=== PATIENT | male | born 1995 | race Hispanic/Latino ===

== ENCOUNTER 2023-08-14 15:14 | Emergency (ER) | payer OTHER, SELFPAY ==
[2023-08-14 15:27] VITALS: BP 124/75
--- NOTE | 2023-08-14 20:34 | ED.GENMED ---
History of Present Illness
General
Chief Complaint: Crisis Evaluation
Source: patient and police (retirement staff)
Exam Limitations: none
Time Seen by Provider: 08/14/23 18:03
Nursing documentation reviewed up to this point in time: agreed with
History of Present Illness
History of Present Illness:
28-year-old male with no reported medical history who presents to the emergency room from [facility] for evaluation of hallucinations/paranoia. I spoke with the retirement nurse to obtain some collateral history�apparently over
the past day or 2 patient has started to exhibit paranoia and appears to be hallucinating, mumbling to himself and saying that someone is trying to kill him. Prior to this patient with normal mental status and so they sent him to the emergency room
to evaluate for any medical cause prior to initiating psychiatric treatment there. When asked why he is here the patient says 'they are trying to kill me, they are trying to rape me.' When asked to exactly he is concerned about he cannot give a
specific answer. When asked if there is any specific event that made him concerned he is unable to provide an answer. He refuses to answer whether he is hearing voices. He denies suicidal ideation. He denies any drug use or history of drug use.
Review of Systems
Review of Systems
All Other Systems: ROS reviewed and negative except as documented in HPI and ROS
Respiratory: Denies trouble breathing
Cardiac: Denies chest pain
ABD/GI: Denies abdominal pain
: Denies flank pain
Musculoskeletal: Denies back pain
Neurological: Denies headache
Psychiatric: Denies suicidal
Phy Exam
Physical Exam
Physical Exam:
General: Awake, alert, sitting comfortably in the bed and does not appear in acute distress; initially not answering questions but after repeated attempts to communicate he finally begins to engage
Head: Normocephalic, atraumatic
Eyes: Conjunctiva normal, EOMI, pupils equal round and reactive to light bilateral
Throat: Airway intact, handling secretions
Neck: Trachea midline, supple without meningismus, moving neck through full range of motion
Lungs: Clear to auscultation bilaterally, no wheezing, rales, rhonchi
Heart: Regular rate and rhythm, no murmurs, gallops, or rubs
Abd: Soft, non distended, no apparent tenderness
Neuro: Cranial nerves intact, speech is fluid, no focal motor or sensory deficit
Skin: no rash
Extremities: Atraumatic, warm and well-perfused with equal pulses in all extremities
Scores
Heart Failure Risk
Heart Failure Risk Score: Not Applicable
Heart Score for Chest Pain Patients
STEMI patient?: Not applicable
Withdrawal Assessment of Alcohol
Withdrawal Assessment Completed?: Not applicable
Course
Orders/Labs/Results
Orders:
Orders
08/14/23 18:05
Crisis Consult Routine
Reason for Consult: hallucinations
08/14/23 19:04
CT Head W/o Iv Contrast Urgent
Comment:
Reason For Exam: hallucinations
Drug Screen, Urine [Urine Drug Abuse Screen] Urgent
08/14/23 20:32
Alcohol Urgent
Complete Blood Count/With Diff Urgent
Comprehensive Metabolic Panel Urgent
Abnormal Lab Results
08/14/23
20:32
WBC 12.6 H 10^3/uL
(4.8-10.8)
Absolute Neuts (auto) 9.8 H 10^3/uL
(1.4-6.5)
Absolute Monos (auto) 0.9 H 10^3/uL
(0.1-0.6)
Neutrophils % 77.5 H %
(42.2-75.2)
Lymphocytes % 13.3 L %
(20.5-51.1)
Total Bilirubin 1.6 H mg/dl
(0.2-1.3)
08/14/23 20:32
08/14/23 20:32
Vital Signs
Initial and Last Documented VS:
Initial Vital Signs
Temp Pulse Resp BP Pulse Ox
37.1 C 78 20 124/75 99
08/14/23 15:27 08/14/23 15:27 08/14/23 15:27 08/14/23 15:27 08/14/23 15:27
Last Documented Vital Signs
Temp Pulse Resp BP Pulse Ox
37.1 C 78 20 124/75 99
08/14/23 15:27 08/14/23 15:27 08/14/23 15:27 08/14/23 15:27 08/14/23 15:27
MDM/Problems Addressed
Differential Diagnosis Includes:
Psychosis, jose angel, drug intoxication; brain mass or hemorrhage considered much less likely clinically
MDM/Problems Addressed:
28-year-old male presents from retirement for evaluation of paranoia and hallucinations. Vital signs are normal. Physical exam as above. Sent over to rule out any acute medical abnormality that might account for symptoms. Will check CT head. Check
basic labs. Reassess after the above�my initial impression is that this is a primary psychiatric issue. Consulted crisis to evaluate.
CT head negative for any acute pathology. Crisis perform an assessment�patient can be treated psychiatrically at present. Spoke with presents definite confirmed that he can do psychiatric monitoring and treatment there. Awaiting results of lab
work.
Labs reviewed: CBC shows marginal leukocytosis with no signs or symptoms of infection, unlikely acute clinical significance. CMP no clinically significant abnormalities. Vitals have been stable throughout ED visit with no fever, no tachycardia,
normal blood pressure, normal pulse ox, normal respiratory rate. I think he is stable for discharge suspect primary psychiatric issue�he is having paranoid delusions. Plan to discharge back to retirement for psychiatric treatment there.
*Radiology
Radiology exam reviewed: radiology read reviewed
*Pulse Oximetry
Patient hypoxic: no
*Critical Care Note
Total Time (30-74mins, 75-104mins- exclusive of procedures): Not Applicable
Data Reviewed
Source: patient, records and police (Custodial staff)
Patient Management
Discussion with other providers: Custodial staff (Spoke directly with the retirement staff)
ED Attending Note
-
Portions of this chart may have been created with voice recognition software.� Occasional wrong word or��sound alike� substitutions may have occurred due to the inherent limitations of voice recognition software.
Discharge Plan
Departure
Patient Disposition: Home (Routine Discharge)
Date of Disposition: 08/14/23
Time of Disposition: 20:57
Patient with high blood pressure during this ER visit?: No
Discharge Problem:
Paranoid delusion
Instructions: Acute Psychosis (DC)
Referrals:
[facility] [Family Provider] -
Activity Restrictions/Additional Instructions:
Patient will require psychiatric evaluation and treatment at retirement.
Thank you for visiting the Emergency Department at [facility].
1. Please schedule a follow up appointment as directed. Call first thing tomorrow morning to make an appointment.
2. If indicated, please take your medications as instructed and indicated on discharge paperwork.
3. If any of your symptoms do not improve, or persist, or become more severe within 6-12 hours, please return to the emergency department for further care.
4. Please return to the emergency department if you develop a headache, neck pain/stiffness, fever greater than 100.4F, chest pain, shortness of breath, persistent nausea, vomiting, slurred speech, difficulty walking, numbness/tingling, weakness,
signs of infection or any other symptoms that are worrisome to you.
Please call [phone] if you have any questions.
Interventions
Interventions:
*Risk Screen - Suicide Last Done: 08/14/23 15:27
*General Assessment Last Done: 08/14/23 15:27
*Neglect/Abuse Screening Last Done: 08/14/23 15:27
ED-Psychological Assessment Last Done: 08/14/23 15:39
Discharge Date and Time
Print Language: PERUVIAN
[2023-08-14 20:38] LABS: % Basophils 0.3 % (0-2); % Eosinophils 1.4 % (0-6); % Immature Granulocytes 0.2 % (0-0.5); % Lymphocytes 13.3 % (20.5-51.1); % Monocytes 7.3 % (1.7-9.3); % Neutrophils 77.5 % (42.2-75.2); Absolute Eosinophils 0.2 10^3/uL (0-0.7); Absolute Lymphocytes 1.7 10^3/uL (1.2-3.4); Absolute Monocytes 0.9 10^3/uL (0.1-0.6); Absolute Neutrophils 9.8 10^3/uL (1.4-6.5); Hematocrit 45.5 % (39.0-52.0); Hemoglobin 16.3 g/dL (13.0-18.0); Mean Corp Hgb Conc. 35.8 g/dL (33.0-37.0); Mean Corpuscular Hgb 30.4 pg (27.0-31.0); Mean Corpuscular Volume 84.7 fL (80.0-94.0); Mean Platelet Volume 8.5 fL (7.4-10.4); Nucleated Red Blood Cells % 0 % (-); Platelet Count 297 10^3/uL (130-400); Red Blood Cell Count 5.37 10^6/uL (4.70-6.10); White Blood Cell Count 12.6 10^3/uL (4.8-10.8)
[2023-08-14 20:52] LABS: ALT (SGPT) 17 U/L (0-50); AST (SGOT) 26 U/L (17-59); Albumin 4.9 g/dl (3.5-5.0); Alkaline Phosphatase 69 U/L (38-126); Blood Urea Nitrogen 17 mg/dl (9-20); Calcium 9.9 mg/dl (8.4-10.2); Carbon Dioxide 28 mmol/L (22-30); Chloride 100 mmol/L (98-107); Estimated Creatinine Clearance > 125 ml/min; Glucose 91 mg/dl (70-99); Potassium 4.2 mmol/L (3.5-5.1); Sodium 138 mmol/L (135-145); Total Bilirubin 1.6 mg/dl (0.2-1.3); Total Protein 7.8 g/dl (6.3-8.2); eGFR > 60.00
[2023-08-14 20:54] LABS: Alcohol None Detected
[2023-08-14 21:25] VITALS: BP 137/70
== END 2023-08-14 21:31 | disposition home or self-care (01) ==
LOC: EMR 15:14
PROVIDERS: EMERGENCY PHYSICIAN Emergency Medicine
DX: F22 Delusional disorders (principal)
CPT/HCPCS: 99284; 70450; 80053; 82077; 85025